=== PATIENT | male | born 1985 | race African-American/Black ===

== ENCOUNTER 2018-02-28 09:02 | Emergency (ER) | payer OTHER, BC ==
[2018-02-28] MEDS ORDERED: LIDOCAINE 1%/EPINEPHRINE INJ 20 ML VIAL INJ ONE (09:34)
--- NOTE | 2018-02-28 09:37 | ER Document Report ---
HPI - HPI Patient complains to provider of: Wound check Onset: Yesterday Onset/Duration: Persistent Quality of pain: Achy Pain Level: 3 Context: Patient states that he cut his leg yesterday with a machine trimmer. Patient was seen at [facility] yesterday and the provider there used silver nitrate to cauterize the bleeding. Patient states that during the night his leg continued to bleed causing him to have to change her dressing multiple times. Patient states his tetanus immunization is up-to-date at this time. Associated Symptoms: Other - Leg wound bleeding Exacerbated by: Walking Relieved by: Denies Similar symptoms previously: No Recently seen / treated by doctor: Yes - ROS ROS below otherwise negative: Yes Systems Reviewed and Negative: Yes All other systems reviewed and negative - CONSTITUTIONAL Constitutional: DENIES: Fever - MUSCULOSKELETAL Musculoskeletal: REPORTS: Extremity pain - DERM Skin Problems: Laceration Past Medical History - General Information source: Patient - Social History Smoking Status: Current Every Day Smoker Chew tobacco use (# tins/day): No Smoking Education Provided: Yes Frequency of alcohol use: None Drug Abuse: None Occupation: [employer] Family History: Reviewed & Not Pertinent Patient has suicidal ideation: No Patient has homicidal ideation: No - Medical History Medical History: Negative Renal/ Medical History: Denies: Hx Peritoneal Dialysis Surgical Hx: Negative Vertical Provider Document - CONSTITUTIONAL Agree With Documented VS: Yes Exam Limitations: No Limitations General Appearance: WD/WN, No Apparent Distress - INFECTION CONTROL TRAVEL OUTSIDE OF THE [place] IN LAST 30 DAYS: No - HEENT HEENT: Atraumatic, Normocephalic - NECK Neck: Normal Inspection - RESPIRATORY Respiratory: Breath Sounds Normal, No Respiratory Distress - CARDIOVASCULAR Cardiovascular: Regular Rate, Regular Rhythm - MUSCULOSKELETAL/EXTREMETIES Musculoskeletal/Extremeties: MAEW - NEURO Level of Consciousness: Awake, Alert, Appropriate Motor/Sensory: No Motor Deficit - DERM Integumentary: Warm, Dry, Laceration - left anterior thigh Course - Re-evaluation Re-evalutation: 02/28/18 10:[address], no active bleeding from wound. Discussed worsening symptoms that patient should return immediatelly for. Patient does report that tetanus immunization was updated yesterday at the urgent care. Patient verbalized understanding of instructions and agrees with plan of care. 02/28/18 17:30 - Vital Signs Vital signs: Temp Pulse Resp BP Pulse Ox 98.4 F 72 16 123/69 98 02/28/18 09:13 02/28/18 09:13 02/28/18 09:13 02/28/18 09:13 02/28/18 09:13 Discharge - Discharge Clinical Impression: Laceration Condition: Stable Disposition: HOME, SELF-CARE Instructions: Non-Sutured Laceration ([facility]) Additional Instructions: Return immediately for any new or worsening symptoms Followup with your primary care provider, call tomorrow to make a followup appointment Forms: Return to Work Referrals: [facility] [Provider Group] - Follow up as needed
[2018-02-28 10:46] VITALS: BP 130/73
== END 2018-02-28 10:40 | disposition home or self-care (01) ==
LOC: ER 09:02
DX: S71.112D Laceration without foreign body, left thigh, subsequent encounter (principal); W29.3XXD Contact with powered garden and outdoor hand tools and machinery, subsequent encounter; F17.200 Nicotine dependence, unspecified, uncomplicated
CPT/HCPCS: 99282; J3490